=== PATIENT | female | born 1975 | race Caucasian/White ===

== ENCOUNTER 2017-09-25 13:55 | Inpatient (IN) | payer SELFPAY ==
[~2017-09-25] VITALS: Ht 162.6 cm; Wt 60.3 kg
[2017-09-25] MEDS ORDERED: ACETAMINOPHEN 325 MG TAB PO ONE ×2 (14:11→14:15)
[2017-09-25] MEDS ORDERED: VANCOMYCIN 1GM/250ML 250 ML IV ONE (14:15)
[2017-09-25 14:26] LABS: Basophils # (auto) 0 uL; Basophils % (auto) 0.3 % (0.0-2.0); Eosinophils # (auto) 0.1 uL; Monocytes # (auto) 1.2 uL; Monocytes % (auto) 9.2 % (0.0-12.0); Platelet Count (auto) 248 10^3/uL (140-450)
[2017-09-25 14:28] LABS: Eosinophils % (auto) 0.7 % (0.0-7.0); Hematocrit 32.9 % (36.0-46.0); Hemoglobin 10.4 g/dL (12.2-16.2); Lymphocytes # (auto) 1.2 uL; Lymphocytes % (auto) 9.1 % (10.0-50.0); Mean Corpuscular Hemoglobin 24.7 pg (28.0-32.0); Mean Corpuscular Hgb Conc. 31.6 g/dL (32.0-36.0); Mean Corpuscular Volume 78.3 fL (80.0-100.0); Neutrophils # (auto) 10.3 uL; Neutrophils % (auto) 80.7 % (37.0-80.0); Red Cell Distribution Width 16.8 % (11.8-14.3); White Blood Cell 12.7 10^3/uL (4.4-10.8)
[2017-09-25 14:47] LABS: Albumin 2.7 g/dL (3.4-5.0); BUN/Creatinine Ratio 16.9; Bilirubin, Total 0.3 mg/dL (0.2-1.0); Calcium 7.9 mg/dL (8.5-10.1); Potassium 3.8 mmol/L (3.5-5.1); Total Protein 6.5 g/dL (6.4-8.2)
[2017-09-25] MEDS ORDERED: diphenhdrAMINE HCL 50 MG/1 ML VL IV ONE (23:45)
[2017-09-26] MEDS ORDERED: CLINDAMYCIN 900MG IV 50 ML IV ONE (01:45)
[2017-09-26] MEDS ORDERED: cefTRIAXone 1GM/10ml IVPUSH 10 ML IV ONE (02:00)
[2017-09-26] MEDS ORDERED: TEMAZEPAM 15 MG CAP PO PRN (02:00)
[2017-09-26] MEDS ORDERED: ACETAMINOPHEN 325 MG TAB PO PRN (02:00)
[2017-09-26] MEDS ORDERED: ONDANSETRON HCL 4 MG/2 ML VIAL IV PRN (02:00)
[2017-09-26] MEDS: SODIUM CHLORIDE 0.9% 1,000 ML IV SCH ×2 (02:30→03:34)
[2017-09-26] MEDS: HYDROcodone-ACET 5/325MG TAB PO PRN ×4 (03:39→23:47)
[2017-09-26 04:21] VITALS: BP 110/68
[2017-09-26 05:00] VITALS: BP 110/68
[2017-09-26] MEDS: CLINDAMYCIN 600MG IV 50 ML IV SCH ×3 (05:07→21:28)
[2017-09-26 05:56] LABS: Alcohol, Urine < 3.0 mg/dL (0-5); Amphetamine Screen, Urine POSITIVE (NEGATIVE); Barbiturate Scree,Urine NEGATIVE (NEGATIVE); Benzodiazephine Screen, Urine NEGATIVE (NEGATIVE); Cannabinoid Screen, Urine NEGATIVE (NEGATIVE); Cocaine Screen, Urine NEGATIVE (NEGATIVE); Opiate Scree,Urine POSITIVE (NEGATIVE); Phencyclidine Screen, Urine NEGATIVE (NEGATIVE)
[2017-09-26 09:04] VITALS: BP 96/66
[2017-09-26] MEDS: ENOXAPARIN SOD 40 MG/0.4 ML SYRINGE SC SCH (09:21)
[2017-09-26] MEDS: FAMOTIDINE 20 MG TAB PO SCH ×2 (09:22→21:28)
[2017-09-26] MEDS ORDERED: TETANUS-DIPTH-ACEL PERTUSSIS 0.5ML SYRG IM ONE (13:00)
[2017-09-26 13:38] VITALS: BP 118/74
[2017-09-26 17:44] VITALS: BP 114/72
[2017-09-26 19:08] LABS: Hepatitis B Surface Antibody Negative
[2017-09-26 20:32] LABS: Hepatitis B Surface Antigen Negative (Negative)
[2017-09-26 21:54] VITALS: BP 119/72
[2017-09-26] MEDS ORDERED: cefTRIAXone 1GM/10ml IVPUSH 10 ML IV SCH (22:00)
[2017-09-27 04:40] VITALS: BP 111/70
[2017-09-27] MEDS: CLINDAMYCIN 600MG IV 50 ML IV SCH ×2 (05:41→12:52)
[2017-09-27] MEDS: SODIUM CHLORIDE 0.9% 1,000 ML IV SCH (05:41)
[2017-09-27 06:52] LABS: Basophils # (auto) 0 uL; Eosinophils # (auto) 0.2 uL; Lymphocytes # (auto) 1.4 uL; Monocytes # (auto) 0.7 uL; Neutrophils # (auto) 5.1 uL; Platelet Count (auto) 227 10^3/uL (140-450); White Blood Cell 7.5 10^3/uL (4.4-10.8)
[2017-09-27 06:54] LABS: Basophils % (auto) 0.4 % (0.0-2.0); Eosinophils % (auto) 2.6 % (0.0-7.0); Hematocrit 29.6 % (36.0-46.0); Hemoglobin 9.5 g/dL (12.2-16.2); Lymphocytes % (auto) 18.9 % (10.0-50.0); Mean Corpuscular Hgb Conc. 32.3 g/dL (32.0-36.0); Mean Corpuscular Volume 78.3 fL (80.0-100.0); Monocytes % (auto) 9.9 % (0.0-12.0); Neutrophils % (auto) 68.2 % (37.0-80.0); Red Blood Cells 3.78 10^6/uL (4.0-5.20); Red Cell Distribution Width 16.8 % (11.8-14.3)
[2017-09-27 06:56] LABS: Mean Corpuscular Hemoglobin 25.5 pg (28.0-32.0)
[2017-09-27 07:10] LABS: Potassium 3.7 mmol/L (3.5-5.1)
[2017-09-27 07:15] LABS: Albumin 2.3 g/dL (3.4-5.0); BUN/Creatinine Ratio 20.5; Calcium 7.9 mg/dL (8.5-10.1)
[2017-09-27 07:17] LABS: Bilirubin, Total 0.4 mg/dL (0.2-1.0); Total Protein 5.8 g/dL (6.4-8.2)
[2017-09-27 09:38] VITALS: BP 116/74
[2017-09-27] MEDS: HYDROcodone-ACET 5/325MG TAB PO PRN (09:53)
[2017-09-27] MEDS: FAMOTIDINE 20 MG TAB PO SCH (09:54)
[2017-09-27] MEDS: ENOXAPARIN SOD 40 MG/0.4 ML SYRINGE SC SCH (09:54)
[2017-09-27 12:43] VITALS: BP 123/70
== END 2017-09-27 16:29 | disposition home or self-care (01) | DRG 603 ==
LOC: EDBD 13:55 → ER 14:01 → WEST WING 14:02
PROVIDERS: ADMIT Nurse Practitioner; ATTEND Nurse Practitioner
DX: L02.212 Cutaneous abscess of back [any part, except buttock and flank] (principal); E87.1 Hypo-osmolality and hyponatremia; B19.20 Unspecified viral hepatitis C without hepatic coma; F12.90 Cannabis use, unspecified, uncomplicated; F15.10 Other stimulant abuse, uncomplicated; F17.210 Nicotine dependence, cigarettes, uncomplicated; N18.9 Chronic kidney disease, unspecified; G47.00 Insomnia, unspecified; L72.3 Sebaceous cyst; W57.XXXA Bitten or stung by nonvenomous insect and other nonvenomous arthropods, initial encounter; S30.860A Insect bite (nonvenomous) of lower back and pelvis, initial encounter; D72.829 Elevated white blood cell count, unspecified; J44.9 Chronic obstructive pulmonary disease, unspecified; Z59.0 Homelessness; Z82.49 Family history of ischemic heart disease and other diseases of the circulatory system; Z71.51 Drug abuse counseling and surveillance of drug abuser; Z88.1 Allergy status to other antibiotic agents; Y92.89 Other specified places as the place of occurrence of the external cause; Y93.89 Activity, other specified; Y99.8 Other external cause status; Z23 Encounter for immunization; Z71.6 Tobacco abuse counseling
CPT/HCPCS: 36415; 72131; 80053; 80307; 81025; 85025; 86703; 86706; 86803; 87040; 87077; 87081; 87186; 87205; 87340; 90715; 96365; 96367; 96375; J2405; J3490